=== PATIENT | male | born 1975 | race Caucasian/White ===

== ENCOUNTER → 2018-07-02 | Outpatient (CLI) | payer BC, OTHER ==
[~2018-07-02] VITALS: Ht 185.4 cm; Wt 108.9 kg
[~2018-07-02] MED LIST: APRISO0.375 GM PO; ASACOL 400 MG400 M1; NOHOMEMEDICATIONS; OMEPRAZOLE 20 M20 M1 PO; PERCOCET 5-3251 EACH PO; PREDNISONE 20 M20 MG PO; PRILOSEC 10MG C10 M1 PO; VASCEPA1 GM PO
[2018-07-02 10:22] VITALS: BP 114/74
--- NOTE | 2018-07-02 11:38 | EKG ---
[address] [address] ELECTROCARDIOGRAM REPORT Name: SYLVIAANJEL Room #: REG RAKAN Ramos#: [id number] ������������������ Admission: 07/02/18 ������������������ Attend Phys: Jay Pandya Discharge: ������������������ Date of : 75 Report #: [id number] ����������������������������������������������������������������� [id number] THIS REPORT FOR: //name// [facility] Test Date: 2018-07-02 Test Time: 10:58:19 Pat Name: ANJEL WARD Department: Room: Gender: Healthcare Management Consultant: Oli MEADOWS : 1975 Requested By: Jay Pandya Order Number: [id number] MD: Dipak Vicente Measurements Intervals [place] Rate: 53 P: 23 ND: 166 QRS: 70 QRSD: 91 T: 28 QT: 391 QTc: 367 Interpretive Statements Sinus rhythm No previous ECG available for comparison Electronically Signed On 07-02-2018 11:38:34 CDT by Dipak Vicente [email or web address] ��������������������������������������������� <ELECTRONICALLY SIGNED> ���������������������������������������� By: Dipak Vicente MD ��������������������������������������������� 07/02/18 1138 1058 1058 MD LIS Sanderson
--- NOTE | 2018-07-02 21:46 | CATHLAB ---
[facility] [address] [address] INVASIVE PROCEDURE REPORT Name: ANJEL WARD Room #: REG CL Richard#: [id number] ������������� Admission: 07/02/18 ������������� Attend Phys: Jay Naranjo Discharge: ��� ������������� ��� Date of : 75 Date of Service: 07/02/18 2146 �� Report #: [id number] �������� ��������������������������������������������[id number] THIS REPORT FOR: //name// APPROVED REPORT Study performed: 07/02/2018 14:33:41 Patient Details The patient is a 42 year-old male Event Personnel Jay Pandya Middleware Systems Architect, Florentino Almeida RN, Sulema Moreno DRILL DOCTOR Scrub, Padmaja Cosme Monitor Procedures Performed Left Heart Cath w/or w/o Coronaries [id number] [facility], supervision of conscious sedation Indication Positive stress test, Chest pain Procedure Narrative The Right Groin^ was infiltrated with 1% Lidocaine subcutaneous anesthesia. A 4FR MULTIPACK JR 4/JL 4/PIG #[id number] sheath was inserted into the RFA^. Coronary angiography was performed using coronary diagnostic catheters. The right coronary system was accessed and visualized with a JR4 catheter. The left coronary system was accessed and visualized with a JL4 catheter. The left ventricle was accessed and visualized with a PIGTAIL catheter. Intraoperative Conscious Sedation Sedation start time: 1503 Case end Time: 1518 Versed 2 mg Fluoro Time: 1.49 minutes Dose: DAP 3947.00 cGycm2 579 mGy Contrast Type and Amount: Omnipaque 25 ml Coronary Angiography The patient's coronary anatomy is right dominant. Diagnostic Cath Left Main Moderate caliber vessel of normal origin bifurcates that into the ascending the circumflex free of high-grade [facility] [address] [email or web address] [address] INVASIVE PROCEDURE REPORT Name: ANJEL WARD Room #: REG CL Richard#: [id number] ������������� Admission: 07/02/18 ������������� Attend Phys: Jay Naranjo Discharge: ��� ������������� ��� Date of : 75 Date of Service: 07/02/18 2146 �� Report #: [id number] �������� ��������������������������������������������[id number] disease LAD Moderate caliber type II vessel which courses in the proximal segment of the anterior interventricular sulcus. 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 The vessel then bifurcates rise to a moderate caliber diagonal branch which is free of high-grade disease in the LAD proper continues its course in the anterior interventricular sulcus towards the apex. No high-grade lesions are identified Diagonal 1 Moderate caliber vessel with a high-grade disease as it courses along the anterolateral aspect of the ventricle Circumflex Large to moderate caliber nondominant vessel which gives rise to moderate to large caliber marginal branches it courses along the lateral vascular ventricle free of high-grade disease. Circumflex and terminates small-caliber vessel and posterior aspect of the heart OM1 A large caliber branch with a high-grade lesions courses towards the apex Right Coronary Moderate to large caliber vessel of normal origin coursing the anterior interventricular sulcus free of high-grade disease it courses posteriorly in the AV groove and which is approximately the heart giving rise to a small caliber posterior descending artery. The disorder second cyst of a small caliber vessel free of high-grade stenosis R PDA Small-caliber vessel without high-grade lesions noted Left Ventriculography Left Ventriculography was not performed. Hemodynamics The aortic pressure is 122/76 mmHg with a mean of 100 mmHg. The left ventricular pressure is 122/10 mmHg with a mean of mmHg. The left ventricular end diastolic pressure is 26 mmHg. Conclusion 1. Normal coronary arteries 2. Normal hemodynamics Recommendations Cardiac Risk Reduction Program ��������������������������������������������� <ELECTRONICALLY SIGNED> ���������������������������������������� By: Jay Pandya MD ��������������������������������������������� 07/02/182145 45 45 Jay Pandya MD /INF
== END | disposition home or self-care (01) ==
LOC: CATH 08:58
DX: R07.9 Chest pain, unspecified (principal); K21.9 Gastro-esophageal reflux disease without esophagitis; F17.210 Nicotine dependence, cigarettes, uncomplicated; Z87.19 Personal history of other diseases of the digestive system; Z79.899 Other long term (current) drug therapy; Z98.890 Other specified postprocedural states; Z79.82 Long term (current) use of aspirin